=== PATIENT | female | born 1990 | race Two or more races ===

== ENCOUNTER 2019-10-29 18:20 | Emergency (ER) | payer SELFPAY ==
--- NOTE | 2019-10-29 18:37 | ER Document Report ---
HPI - HPI Patient complains to provider of: right knee pain Time Seen by Provider: 10/29/19 18:30 Onset: Other - 4 days ago Quality of pain: Achy Pain Level: 2 Context: 29-year-old female presents with right knee pain. Reports she fell directly on her knee, on a hard floor 4 days ago. Reports having pain since that time. Limps when walking. Reports she took 2 Tylenol without relief of symptoms. Reports it hurts to flex her leg. Denies past medical history of injury to the knee. Reports the knee was swollen worse at first. Denies fever vomiting diarrhea. She also reports knee pain is giving her headache. Associated Symptoms: None Exacerbated by: Movement, Walking Relieved by: Denies Similar symptoms previously: No Recently seen / treated by doctor: No - MUSCULOSKELETAL Musculoskeletal: REPORTS: Extremity pain Past Medical History - General Information source: Patient Last Menstrual Period: 2 days ago - Social History Smoking Status: Current Every Day Smoker Chew tobacco use (# tins/day): No Frequency of alcohol use: None Drug Abuse: None Occupation: None Family History: None Patient has suicidal ideation: No Patient has homicidal ideation: No Pulmonary Medical History: Reports: Hx Asthma Surgical Hx: Negative Vertical Provider Document - CONSTITUTIONAL Agree With Documented VS: Yes Exam Limitations: No Limitations General Appearance: WD/WN, No Apparent Distress - HEENT HEENT: Atraumatic, Normocephalic - NECK Neck: Supple - RESPIRATORY Respiratory: No Respiratory Distress - CARDIOVASCULAR Cardiovascular: Regular Rate - MUSCULOSKELETAL/EXTREMETIES Musculoskeletal/Extremeties: Tender - Patient complains of anterior knee pain no erythema no warmth, slight swelling noted, patient complains of pain with flexing knee.. negative: Eccymosis - NEURO Level of Consciousness: Awake, Alert, Appropriate Motor/Sensory: No Motor Deficit - DERM Integumentary: Warm, Dry Adult Front & Back Diagram: 1 - Patient complains of knee pain. Course - Re-evaluation Re-evalutation: 10/29/19 19:23 29-year-old female presents with right knee pain. Reports she fell directly on the right knee 4 days ago. Reports pain since that time. Reports limping when she walks. X-ray does not show an acute fracture but does show a joint effusion. She was instructed on joint effusion. She was instructed on signs and symptoms of infection to the joint. She was instructed take medication as prescribed rest ice. Maximino wrap and crutches were provided. She was instructed to follow-up with primary care provider or orthopedics for recheck within the week. Patient does have insurance reports she will follow-up. She was instructed if she was unable to follow-up to return to the emergency department. She verbalized understanding to all instructions. Knee X-Ray 10/29/19 18:36 IMPRESSION: Joint effusion with no acute osseous finding. Consider MRI if internal derangement is of concern. - Vital Signs Vital signs: Temp Pulse Resp BP Pulse Ox 98.1 F 94 16 142/99 H 98 10/29/19 18:27 10/29/19 18:27 10/29/19 18:27 10/29/19 18:27 10/29/19 18:27 - Diagnostic Test Radiology reviewed: Reports reviewed Procedures - Immobilization Right Knee Pre-Proc Neuro Vasc Exam: Normal Immobilizer type: Maximino wrap Performed by: PCT Post-Proc Neuro Vasc Exam: Unchanged from pre-exam Alignment checked and good: Yes Discharge - Discharge Clinical Impression: Right anterior knee pain, Knee effusion, right Condition: Stable Disposition: HOME, SELF-CARE Instructions: Maximino Wrap ([facility]), Use of Crutches ([facility]), Family Physicians / Practices, Ice & Elevation ([facility]), Knee Effusion ([facility]), Oral Narcotic Medication ([facility]) Additional Instructions: *You have been evaluated for right knee pain, knee effusion *Maintain the maximino wrap for comfort, use the crutches for the next 3 days. *Rest/Ice/Elevate your knee *Monitor your knee as discussed for signs of infection such as redness warmth increasing pain increasing swelling *Follow up with a primary care provider or orthopedic within 1 week for recheck *Take Arcadia as prescribed for pain *Return to ED for worsening condition, changes, needs Monitor your blood pressure. Your blood pressure was elevated today. This may be because you were anxious, in pain or because you need medication. It is important to follow up with your primary care provider for full evaluation. Forms: Elevated Blood Pressure Referrals: EMILY JUSTICE JR, DO [ACTIVE PROVISIONAL STAFF] - Follow up as needed RADHA SONI MD [ACTIVE PROVISIONAL STAFF] - Follow up as needed [facility] [Provider Group] - Follow up as needed
--- NOTE | 2019-10-29 18:59 | RADIOLOGY REPORT (SQ) ---
EXAM DESCRIPTION: KNEE LEFT 3 VIEWS IMAGES COMPLETED DATE/TIME: 10/29/2019 6:47 pm REASON FOR STUDY: fell on knee COMPARISON: None. NUMBER OF VIEWS: Three views. TECHNIQUE: AP, lateral, and sunrise patella radiographic images acquired of the left knee. LIMITATIONS: None. FINDINGS: MINERALIZATION: Normal. BONES: No acute fracture or dislocation. No worrisome bone lesions. JOINT: There is a joint effusion. SOFT TISSUES: No soft tissue swelling. No radio-opaque foreign body. OTHER: No other significant finding. IMPRESSION: Joint effusion with no acute osseous finding. Consider MRI if internal derangement is o f concern. TECHNICAL DOCUMENTATION: JOB ID: [id number] 2010 [employer]- All Rights Reserved Reading location - IP/workstation name: [email or web address]
[2019-10-29] MEDS ORDERED: HYDROCODONE/ACETAMINOPHEN 5-325 MG (6 TAB/ER DISP) PO PRN (19:21)
[2019-10-29 20:09] VITALS: BP 134/88
== END 2019-10-29 19:40 | disposition home or self-care (01) ==
LOC: ER 18:20
DX: M25.561 Pain in right knee (principal); M25.461 Effusion, right knee; W19.XXXA Unspecified fall, initial encounter
CPT/HCPCS: 99283

== ENCOUNTER 2020-01-27 09:24 | Emergency (ER) | payer MEDICAID, OTHER ==
[2020-01-27 10:06] LABS: APPEARANCE,URINE CLOUDY; BILIRUBIN,URINE NEGATIVE (NEGATIVE); COLOR,URINE YELLOW; GLUCOSE, URINE NEGATIVE (NEGATIVE); KETONES,URINE NEGATIVE (NEGATIVE); LEUKOCYTE ESTERASE,URINE NEGATIVE (NEGATIVE); NITRITE,URINE NEGATIVE (NEGATIVE); PROTEIN,URINE 30 mg/dL (NEGATIVE); URINE SPECIFIC GRAVITY 1.035; UROBILINOGEN,URINE NEGATIVE mg/dL (<2.0)
[2020-01-27] MEDS ORDERED: KETOROLAC TROMETHAMINE 60 MG/2 ML SDV IM ONE (13:28)
[2020-01-27] MEDS ORDERED: CEFTRIAXONE INJ 250 MG VIAL IM ONE (13:29)
--- NOTE | 2020-01-27 13:34 | ER Document Report ---
ED General - General Chief Complaint: Vaginal Pain Stated Complaint: HEADACHE/ABDOMINAL PAIN/FLANK PAIN Time Seen by Provider: 01/27/20 10:46 - HPI Notes: Chief complaint: Pelvic pain History of present illness: 29-year-old female nulligravida with last menses 3 and half weeks ago described as normal complains of 1 week history of severe discomfort vaginal area radiating into lower back on both sides. She has a longstanding history of chronic/recurrent genital herpes and has not been on treatment for this recently but denies seeing any vesicles. She has had some low-grade temperature intermittently. No nausea or vomiting. She reports white vaginal discharge. She reports a history of mild GI upset after taking ibuprofen but otherwise no allergies are indicated. She is currently on no prescription medications. She also complains of dull headache intermittently and is concerned that her blood pressure might be elevated. She says she is never been diagnosed with hypertension or taken medication for hypertension. - Related Data Allergies/Adverse Reactions: ibuprofen Allergy (Verified 01/27/20 09:36) Home Medications: valtrex Past Medical History - General Information source: Patient, Friend - Social History Smoking Status: Current Some Day Smoker Chew tobacco use (# tins/day): No Frequency of alcohol use: Occasional Drug Abuse: Marijuana Family History: None Patient has homicidal ideation: No - Past Medical History Cardiac Medical History: Reports: None Pulmonary Medical History: Reports: Hx Asthma Neurological Medical History: Reports: None Endocrine Medical History: Reports: None Renal/ Medical History: Reports: Other - History chronic/recurrent genital herpes Malignancy Medical History: Reports: None Past Surgical History: Reports: Hx Tonsillectomy Review of Systems - Review of Systems Notes: Constitutional: As per HPI. HENT: Negative for sore throat. Eyes: Negative for visual changes. Cardiovascular: Negative for chest pain. Respiratory: Negative for shortness of breath. Gastrointestinal: As per HPI. Genitourinary: As per HPI. Musculoskeletal: Negative for back pain. Skin: Negative for rash. Neurological: As per HPI. 10 point ROS negative except as marked above and in HPI. Physical Exam - Vital signs Vitals: Temp Pulse Resp BP Pulse Ox 97.5 F 73 20 137/81 H 100 01/27/20 09:29 01/27/20 09:29 01/27/20 09:01/27/20 09:01/27/20 09:29 - Notes Notes: GENERAL: Well-developed well-nourished appearing in no acute distress. SKIN: Good turgor no rashes. HEAD: Normocephalic atraumatic. EYES: PERRLA. EOMI. Conjunctivae and sclerae clear. EARS: CANALS AND TMS CLEAR. NOSE: CLEAR. MOUTH: Moist mucosa. Good dentition. No stridor or edema. No drooling. NECK: Supple. No masses or thyromegaly. No adenopathy. Carotids 2+ without bruits. No JVD. BACK: Symmetrical with mild bilateral CVA tenderness. CHEST: Respirations unlabored. Breath sounds clear and symmetrical. HEART: Regular rhythm. No murmur gallop or rub. ABDOMEN: Soft nontender without masses, organomegaly or rebound. Bowel sounds normally active. No bruits. Pelvic: Normal external genitalia and hair distribution. No vesicles in the perineal area at this time. Cervix is nulliparous with "strawberry" appearance. There is a large amount of frothy white vaginal discharge present consistent with trichomonas. Prominent cervical motion tenderness. Mild tenderness of both adnexa without palpable masses. EXTREMITIES: No edema. No calf tenderness. Cap refill less than 1.5 seconds. Dorsalis pedis and posterior tibial pulses 3+ and symmetrical. NEUROLOGICAL: GCS 15. Alert and oriented x3. Normal gait. Fluent speech. Cranial nerves II through XII intact. Sensorimotor and cerebellar normal. Normal tone. PSYCHIATRIC: Appropriate affect. Course - Re-evaluation Re-evalutation: 01/27/20 13:42 Clinically the patient has trichomonas and PID. Rocephin IM. Toradol IM. We will continue oral outpatient antibiotics and analgesics and suggest follow-up within 72 hours at health department or local clinic. Advised her to abstain from intercourse and we will suggest outpatient testing to include RPR and HIV testing. 01/27/20 13:43 Findings, clinical impression and plan of treatment have been discussed with patient/family. Understanding of current findings and recommendations has been acknowledged by them and there is agreement regarding disposition and follow-up. - Vital Signs Vital signs: Temp Pulse Resp BP Pulse Ox 97.5 F 73 20 137/81 H 100 01/27/20 09:36 01/27/20 09:29 01/27/20 09:29 01/27/20 09:29 01/27/20 09:29 - Laboratory Laboratory results interpreted by me: 01/27/20 09:48 Urine Protein 30 H Urine Ascorbic Acid 40 H Discharge - Discharge Clinical Impression: Pelvic inflammatory disease (PID), Vaginitis due to Trichomonas Condition: Stable Disposition: HOME, SELF-CARE Additional Instructions: Pelvic Inflammatory Disease You have been diagnosed as having pelvic inflammatory disease (PID). This is an infection of the fallopian tubes and surrounding areas of the pelvis. Symptoms are usually pelvic pain and discharge. The infection can do permanent damage to the tubes and ovaries. It should be taken very seriously. Treatment is antibiotics, which may be given by vein or by injection if the infection seems serious. It's important that you receive all recommended medication. Condoms help prevent spread of this infection to others. Because this infection is spread sexually, it's important that your sexual partner be checked before resuming sexual relations. If a culture shows gonorrhea or chlamydia organisms, the law requires that this be reported to the health department. Call the doctor or return at once if you develop increasing fever, rash, severe pelvic pain, vaginal bleeding (other than your period), or problems with your bladder or bowels. Trichomonas Infection Trichomoniasis is infection of the vagina or male genital tract with Trichomonas vaginalis. It can be asymptomatic or cause urethritis, vaginitis, or occasionally cystitis, epididymitis, or prostatitis. Diagnosis is by microscopic examination of vaginal or prostatic secretions or by urethral culture. Patients and sex partners are treated with metronidazole. T. vaginalis is a flagellated, sexually transmitted protozoan that more often infects women (about 20% of women of reproductive age) than men. Infection may be asymptomatic in either sex, but asymptomatic is the rule for men. In men, protozoa may persist for long periods in the tract without causing symptoms; thus, protozoa may be transmitted unwittingly to sex partners. Trichomoniasis may account for up to 5% of nongonococcal, nonchlamydial urethritis in men in some areas. Co-infection with gonorrhea and other sexually transmitted diseases (STDs) is common. In women, symptoms range from none to copious, yellow-green, frothy vaginal discharge with soreness of the vulva and perineum, dyspareunia, and dysuria. Asymptomatic infection may become symptomatic at any time as the vulva and perineum become inflamed and edema develops in the labia. The vaginal herrera and surface of the cervix may have punctate, red "strawberry" spots. Urethritis and possibly cystitis may also occur. Men are usually asymptomatic; however, sometimes urethritis results in a discharge that may be transient, frothy, or purulent or that causes dysuria and frequency, usually early in the morning. Often, urethritis is mild and causes only minimal urethral irritation and occasional moisture at the urethral meatus, under the foreskin, or both. Epididymitis and prostatitis are rare complications. Trichomoniasis is suspected in women with vaginitis, in men with urethritis, and in their sex partners. Suspicion is high if symptoms persist after patients have been evaluated and treated for other infections such as gonorrhea and chlamydial, mycoplasmal, and ureaplasmal infections. In women, diagnosis is based on clinical criteria and in-office testing. The saline wet mount is examined microscopically as soon as possible to detect trichomonads.In men, microscopy of urine is insensitive, although occasionally organisms are visible in a first-voided morning specimen or a centrifuged specimen. Cultures of urine and urethral swabs are more sensitive. As with diagnosis of any STD, patients with trichomoniasis should be tested to exclude other common STDs such as gonorrhea and chlamydial infection. Metronidazole or tinidazole 2 g po in a single dose cures up to 95% of women if sex partners are treated simultaneously. Effectiveness of single-dose regimens in men is not as clear, so treatment is typically with metronidazole or tinidazole 500 mg bid for 5 to 7 days. Sex partners should be screened and treated for trichomoniasis and other STDs. If poor adherence to follow-up is likely, treatment can be initiated in sex partners of patients with documented trichomoniasis without confirming the diagnosis in the partner. Increase oral fluids. Take prescribed medications as directed. Follow-up with referral clinic or local health department for reevaluation within the next 3 days. Return here as needed for new or worsening symptoms: Pain that is worsening or unimproved Uncontrolled vomiting High fever or shaking chills Overall worsening Prescriptions: Tramadol HCl [Ultram 50 mg Tablet] 50 mg PO Q4HP PRN #12 tab PRN Reason: Doxycycline Monohydrate 100 mg PO BID #20 capsule Metronidazole [Flagyl 500 mg Tablet] 500 mg PO Q6H #40 tablet Referrals: [facility] [Provider Group] - Follow up as needed
[2020-01-27 13:44] LABS: CHLAM PCR NOT DETECTED (NOT DETECT)
[2020-01-27] MEDS ORDERED: LIDOCAINE 1% INJ-PF (10 MG/ML) 30 ML SDV ONE (13:47)
[2020-01-27 14:30] VITALS: BP 123/80
== END 2020-01-27 14:29 | disposition home or self-care (01) ==
LOC: ER 09:24
DX: N73.9 Female pelvic inflammatory disease, unspecified (principal); A59.01 Trichomonal vulvovaginitis; R10.2 Pelvic and perineal pain; F17.200 Nicotine dependence, unspecified, uncomplicated; F12.10 Cannabis abuse, uncomplicated; J45.909 Unspecified asthma, uncomplicated; Z88.8 Allergy status to other drugs, medicaments and biological substances
CPT/HCPCS: 99284; 96372; 81025; 81001; 87491; 87591; J1885; J3490; J0696

== ENCOUNTER 2020-02-01 11:37 | Emergency (ER) | payer OTHER ==
[2020-02-01 11:50] VITALS: BP 135/90
== END 2020-02-01 13:05 | disposition left against medical advice (07) ==
LOC: ER 11:37
DX: Z53.21 Procedure and treatment not carried out due to patient leaving prior to being seen by health care provider (principal); R11.2 Nausea with vomiting, unspecified